=== PATIENT | male | born 1980 | race Caucasian/White ===

== ENCOUNTER 2022-01-17 19:36 | Emergency (ER) | payer SELFPAY ==
[2022-01-17] MEDS ORDERED: Bacitracin 1 PK ONE (19:59)
[2022-01-17] MEDS ORDERED: Boostrix 0.5 ML (Tdap) VIAL ONE (19:59)
== END 2022-01-17 20:19 | disposition home or self-care (01) ==
LOC: NAV ERS 19:36
DX: S61.012A Laceration without foreign body of left thumb without damage to nail, initial encounter (principal); F17.210 Nicotine dependence, cigarettes, uncomplicated; W26.0XXA Contact with knife, initial encounter
CPT/HCPCS: 90471; 90715

== ENCOUNTER 2025-02-10 09:20 | Emergency (ER) | payer BC, SELFPAY ==
[~2025-02-10 09:20] MED LIST: Iopamidol 370 76% 100 ML VIAL ONE
[2025-02-10 09:46] LABS: #Basophils 0.1 thou/uL (0.0-0.2); #Eosinophils 0.1 thou/uL (0.0-0.7); #Lymphocytes 1.8 thou/uL (1.20-3.40); #Monocytes 0.8 thou/uL (0.11-0.59); #Neutrophils 6.2 thou/uL (1.40-6.50); %Basophils 1.5 % (0.0-1.0); %Eosinophils 1.1 % (0.0-10.0); %Lymphocytes 19.3 % (21.0-51.0); %Monocytes 9.3 % (0.0-10.0); %Neutrophils 68.9 % (42.0-75.0); Hematocrit 45.8 % (42.0-52.0); Hemoglobin 15.0 g/dL (14.0-18.0); Mean Corpuscular Hemoglobin 28.9 pg (27.0-31.0); Mean Corpuscular Volume 88.5 fl (78.0-98.0); Platelet Count 226 10x3/uL (130-400); Red Blood Cell (RBC) Count 5.18 mill/uL (4.70-6.10); White Blood Cell (WBC) Count 9.1 10x3/uL (4.8-10.8)
[2025-02-10] MEDS ORDERED: Ondansetron PF 4 MG/2 ML Vial ONE (09:46)
[2025-02-10 09:59] LABS: ALT (SGPT) 71 U/L (Less than 45); AST (SGOT) 47 U/L (11-34); Albumin 4.6 g/dL (3.1-4.5); Alkaline Phosphatase 63 U/L (40-110); Anion Gap 16 mmol/L (10-20); BUN (Urea Nitrogen) 11 mg/dL (8.9-20.6); Bilirubin, Total 0.3 mg/dL (0.3-1.2); Calc. Creatinine Clearance 0 mL/min (70-130); Calcium 9.5 mg/dL (7.8-10.44); Carbon Dioxide 23 mmol/L (22-29); Chloride 106 mmol/L (98-107); Globulin 3.1 g/dL (2.4-3.5); Glucose 114 mg/dL (70-105); Lipase 24 U/L (8-78); Potassium 4.1 mmol/L (3.5-5.1); Sodium 141 mmol/L (136-145)
[2025-02-10 11:16] LABS: Glucose, Urine (Dipstick) Negative (Negative); Leukocyte Negative (Negative); Protein, Urine (Dipstick) Negative (Neg-Trace); Specific Gravity, Urine 1.010 (1.005-1.030)
== END 2025-02-10 11:59 ==
LOC: NAV ERS 09:20
DX: K42.9 Umbilical hernia without obstruction or gangrene (principal); F17.210 Nicotine dependence, cigarettes, uncomplicated
CPT/HCPCS: 74177; 80053; 81001; 83690; 85025; 96374; 96375; J1885; J2270; J2405; J3010; J7030; Q9967